=== PATIENT | male | born 1970 | race Hispanic/Latino ===

== ENCOUNTER → 2017-08-31 | Day surgery (SDC) | payer BC ==
[~2017-08-31] MED LIST: AMLODIPINE BESYL5 MG PO; BUPIVACAINE 0.25% 30ML SDV INJ ONE; DEXAMETHASONE SOD PHOS INJ 4 MG/ML VIAL ONE; FENTANYL CITRATE/PF 100MCG/2 ML INJ ONE; HYDROCODONE/APAP 7.5MG-325MG 1 EA TAB ONE; KETOROLAC TROMETHAMINE 30 MG/ML VIAL ONE; LIDOCAINE 1% W/EPINEPHRINE 20 ML VIAL ONE; LIDOCAINE HCL 2% LOCAL INJ 5 ML SDV VIAL INJ ONE; MIDAZOLAM HCL 2 MG/2 ML VIAL ONE; ONDANSETRON HCL INJ 2 MG/ML VIAL ONE; PROPOFOL IV EMULSION 10 MG/ML 20 ML VIAL ONE; SEVOFLURANE INHAL SOLN 250 ML PEN BTL ONE
[2017-08-31 08:24] LABS: BASOPHILS # (AUTO) 0.1 (0.0-0.1); BASOPHILS % 0.7 % (0.0-1.0); EOSINOPHILS # (AUTO) 0.3 (0.0-0.4); EOSINOPHILS % 4.1 % (0.0-6.0); HEMATOCRIT 42.7 % (38.2-49.6); HEMOGLOBIN 15.1 g/dL (14.0-18.0); LYMPHOCYTES # (AUTO) 2.4 (1.0-3.2); LYMPHOCYTES % 34.5 % (18.0-39.1); MEAN CORPUSCULAR HEMOGLOBIN 31.7 pg (28-32); MEAN CORPUSCULAR HGB CONC 35.4 g/dL (31-35); MEAN CORPUSCULAR VOLUME 89.5 fL (81-99); MONOCYTES # (AUTO) 0.7 (0.2-0.8); MONOCYTES % 10.5 % (4.4-11.3); NEUTROPHILS # (AUTO) 3.5 (2.1-6.9); NEUTROPHILS % 50.1 % (38.7-80.0); PLATELET COUNT 227 x10e3/uL (140-360); RED BLOOD COUNT 4.77 x10e6/uL (4.3-5.7); RED CELL DISTRIBUTION WIDTH 12.2 % (11.7-14.4)
[2017-08-31 08:43] LABS: ANION GAP 11.1 mmol/L (8-16); BLOOD UREA NITROGEN 12 mg/dL (7-26); BUN/CREATININE RATIO 15 (6-25); CALCIUM 8.7 mg/dL (8.4-10.2); CARBON DIOXIDE 27 mmol/L (22-29); CHLORIDE 105 mmol/L (98-107); CREATININE, SERUM 0.82 mg/dL (0.72-1.25); EST GLOMERULAR FILTRATION RATE > 60 ML/MIN (60-); GLUCOSE 103 mg/dL (74-118); POTASSIUM 3.1 mmol/L (3.5-5.1); SODIUM 140 mmol/L (136-145)
--- NOTE | 2017-08-31 12:23 | Operative Report ---
DATE OF PROCEDURE: August 31, 2017 PREOPERATIVE DIAGNOSIS: Right inguinal hernia. POSTOPERATIVE DIAGNOSIS: Right inguinal hernia. OPERATION PERFORMED: Repair of right direct inguinal hernia with extended Prolene hernia system. ANESTHESIA: General. COMPLICATIONS: None. ESTIMATED BLOOD LOSS: Minimal. DESCRIPTION OF PROCEDURE: With the patient lying in bed in the supine position under good general anesthesia, the abdomen was prepped with Betadine solution and draped in the usual manner. A right inguinal incision was made and was carried down through the subcutaneous tissue down to the external oblique aponeurosis. External oblique was opened along the length of its fibers and external inguinal ring was opened. Immediately, a large hernia was encountered. There was a complete blowout of the direct space,. It was a large protruding direct hernia that extended all the way to the top of the scrotum. The cord was then and retracted. A lipoma of the cord was ligated with 2-0 Vicryl and resected and the large direct hernia sac was then imbricated with a pursestring suture of 0 Ethibond. After this was done, an extended Prolene hernia system was then placed in the preperitoneal space and the underlay patch was deployed without any problems. The overlay patch was then placed over the floor and sutured to the conjoined tendon and the inguinal ligament using interrupted sutures of 2-0 Vicryl. The mesh was split to allow for passage of the cord. The whole area then thoroughly irrigated. Perfect hemostasis was ascertained. The layers were infiltrated on the way out with solution of 0.25% Marcaine and 1% lidocaine mixed in equal parts. External oblique aponeurosis was closed with a running suture to 2-0 Vicryl, the subcutaneous tissue was approximated with 3-0 plain, and the skin was closed with clips. A dressing was applied. The sponge, lap, and needle count was correct. Patient tolerated the procedure well and returned to the recovery room in stable condition. Job#: [id number] LUIS ANTONIO
== END | disposition home or self-care (01) ==
LOC: OR 06:51
PROVIDERS: ATTEND Surgery
DX: K40.90 Unilateral inguinal hernia, without obstruction or gangrene, not specified as recurrent (principal); D17.6 Benign lipomatous neoplasm of spermatic cord; I10 Essential (primary) hypertension; Z87.891 Personal history of nicotine dependence
CPT/HCPCS: 36415; 49505; 80048; 85025; 93005; C1781; J1100; J1885; J2001; J2250; J2405